=== PATIENT | male | born 1965 | race African-American/Black ===

== ENCOUNTER 2025-05-23 06:18 | Inpatient (IN) | payer MEDICAID ==
[~2025-05-23] VITALS: Ht 170.2 cm; Wt 77.1 kg
[2025-05-23 06:21] VITALS: O2SAT 98
[2025-05-23 07:12] LABS: HEMATOCRIT. 37.9 % (42.0-52.0); HEMOGLOBIN. 12.7 g/dL (14.0-18.0); MEAN PLATELET VOLUME 7.7 fl (7.4-10.4); PLATELET 223 x1000/uL (130-400); RED BLOOD CELL COUNT 3.82 mill/uL (4.7-6.1); RED CELL DISTRIBUTION WIDTH 14.4 % (11.6-14.6)
[2025-05-23 07:24] LABS: CREATININE 1.7 mg/dL (0.6-1.3); UREA NITROGEN BLOOD 20.0 mg/dL (9-23)
[2025-05-23] MEDS: MORPHINE SULFATE 4 MG/ML INJ (FOR IV/IM USE) IV ONE (08:22)
[2025-05-23] MEDS: SODIUM CHLORIDE 0.9% (SEPSIS BOLUS) IV ONE (08:31)
[2025-05-23] MEDS: PIPERACILLIN/TAZO 3.375G/50ML 50 ML IV ONE (08:40)
[2025-05-23 08:59] LABS: ASPARTATE AMINOTRANSFERASE 12 IU/L (<34); BILIRUBIN DIRECT 0.3 mg/dL (<=3.0); BILIRUBIN TOTAL 0.8 mg/dL (0.1-1.0); PROTEIN TOTAL 5.9 g/dL (6.0-8.3)
[2025-05-23 09:39] LABS: BAND% 21.0 % (1.0-6.0); LYMPHOCYTES % MANUAL 2.0 % (20.0-50.0); MONOCYTES % MANUAL 1.0 % (2.0-8.0); NEUTROPHILS % MANUAL 76.0 % (45.0-75.0); PLATELET ESTIMATE NORMAL
[2025-05-23 11:00] VITALS: BP 150/73; PULSE 102; RESP 19; TEMP 36.4736
[2025-05-23] MEDS ORDERED: ONDANSETRON HCL 4MG/2ML INJ IV PRN (11:30)
[2025-05-23] MEDS ORDERED: MAGNESIUM/ALUMINUM HYDROXIDE/SIMETHICONE 30ML UDC PO PRN (11:30)
[2025-05-23] MEDS ORDERED: ACETAMINOPHEN 325MG TABLET PO PRN (11:30)
[2025-05-23] MEDS ORDERED: NALOXONE HCL 0.4MG/ML VIAL IV PRN (11:45)
[2025-05-23 12:00] VITALS: BP 151/74; PULSE 102; RESP 19; TEMP 36.4; O2SAT 98
[2025-05-23] MEDS: ENOXAPARIN 40MG/0.4ML SYR SUBCUT SCH (12:49)
[2025-05-23] MEDS: SODIUM CHLORIDE 0.9% 1,000 ML IV SCH (12:50)
[2025-05-23] MEDS: HYDROCODONE/ACETAMINOPHEN 10/325MG TABLET PO PRN (14:48)
[2025-05-23] MEDS: PIPERACILLIN/TAZO 3.375G/50ML 50 ML IV SCH (15:22)
[2025-05-23 16:00] VITALS: BP 114/68; PULSE 109; RESP 19; TEMP 36.6; O2SAT 96
[2025-05-23 17:29] LABS: HEPATITIS C AB NON REACTIVE (Neg) (Negative)
[2025-05-23 19:57] LABS: CLARITY URINE CLEAR (CLEAR); COLOR URINE DARK YELLOW (YELLOW); GLUCOSE URINE NEGATIVE (NEGATIVE); KETONES URINE NEGATIVE (NEGATIVE); LEUKOCYTE ESTERASE URINE TRACE (NEGATIVE); NITRITE URINE NEGATIVE (NEGATIVE); OCCULT BLOOD URINE NEGATIVE (NEGATIVE); PH URINE 7.0 (4.5-8.0); PROTEIN URINE 2+ (NEGATIVE); SPECIFIC GRAVITY URINE 1.018 (1.005-1.030); UROBILINOGEN URINE >8.0 E.U./dL (0.2-1.0)
[2025-05-23 20:00] VITALS: BP 139/79; PULSE 106; RESP 20; TEMP 36.5; O2SAT 97
[2025-05-23 20:01] LABS: BACTERIA URINE RARE; RBC URINE NONE SEEN /hpf (0-2); SQUAMOUS EPITHELIAL CELL URINE NONE SEEN /lpf (RARE/1+)
[2025-05-23] MEDS: DOXYCYCLINE HYCLATE 100MG CAPSULE PO SCH (20:44)
[2025-05-23] MEDS: FAMOTIDINE 20MG TABLET PO SCH (20:44)
[2025-05-23] MEDS: ZOLPIDEM TARTRATE 5MG TABLET PO PRN (20:50)
[2025-05-24] VITALS: BP 113/92; PULSE 68; RESP 20; TEMP 36.4; O2SAT 96
[2025-05-24 04:00] VITALS: BP 113/74; PULSE 74; RESP 19; TEMP 36.6; O2SAT 96
[2025-05-24 06:28] LABS: HEMATOCRIT. 38.0 % (42.0-52.0); HEMOGLOBIN. 12.9 g/dL (14.0-18.0); MEAN PLATELET VOLUME 8.3 fl (7.4-10.4); PLATELET 204 x1000/uL (130-400); RED BLOOD CELL COUNT 3.83 mill/uL (4.7-6.1); RED CELL DISTRIBUTION WIDTH 14.0 % (11.6-14.6)
[2025-05-24 06:39] LABS: CREATININE 1.5 mg/dL (0.6-1.3); UREA NITROGEN BLOOD 15.0 mg/dL (9-23)
[2025-05-24 08:00] VITALS: BP 110/60; PULSE 92; RESP 18; TEMP 36.4; O2SAT 98
[2025-05-24 12:00] VITALS: BP 112/62; PULSE 90; RESP 18; TEMP 36.4; O2SAT 97
[2025-05-24 13:26] LABS: BAND% 14.0 % (1.0-6.0); LYMPHOCYTES % MANUAL 2.0 % (20.0-50.0); MONOCYTES % MANUAL 7.0 % (2.0-8.0); NEUTROPHILS % MANUAL 77.0 % (45.0-75.0); PLATELET ESTIMATE NORMAL
[2025-05-24 16:00] VITALS: BP 116/68; PULSE 93; RESP 18; TEMP 36.6; O2SAT 98
[2025-05-24 20:00] VITALS: BP 128/69; PULSE 93; RESP 18; TEMP 36.1; O2SAT 100
[2025-05-25] VITALS: BP 127/82; PULSE 87; RESP 18; TEMP 36.6; O2SAT 98
[2025-05-25 04:00] VITALS: BP 132/82; PULSE 80; RESP 18; TEMP 36.4; O2SAT 96
[2025-05-25 08:00] VITALS: BP 142/84; PULSE 91; RESP 17; TEMP 36.3; O2SAT 96
[2025-05-25 12:00] VITALS: BP 136/76; PULSE 84; RESP 17; TEMP 36.4; O2SAT 97
[2025-05-25 16:00] VITALS: BP 140/77; PULSE 82; RESP 16; TEMP 36.2; O2SAT 96
[2025-05-25] MEDS: ACETAMINOPHEN 325MG TABLET PO PRN (18:01)
[2025-05-25 20:00] VITALS: BP 115/64; PULSE 85; RESP 19; TEMP 36.2; O2SAT 97
[2025-05-26] VITALS: BP 132/83; PULSE 89; RESP 18; TEMP 36.1; O2SAT 97
[2025-05-26] MEDS: VANCOMYCIN 1.5GM PMX (XELLIA) 300 ML IV NR (01:37)
[2025-05-26 04:00] VITALS: BP 136/75; PULSE 83; RESP 18; TEMP 36.1; O2SAT 97
[2025-05-26 06:08] LABS: CREATININE 1.5 mg/dL (0.6-1.3); UREA NITROGEN BLOOD 13.0 mg/dL (9-23)
[2025-05-26 06:19] LABS: PLATELET 259 x1000/uL (130-400); RED BLOOD CELL COUNT 3.85 mill/uL (4.7-6.1); RED CELL DISTRIBUTION WIDTH 14.0 % (11.6-14.6)
[2025-05-26] MEDS ORDERED: EPHEDRINE SULFATE 50MG/ML VIAL ONE (07:43)
[2025-05-26] MEDS ORDERED: PHENYLEPHRINE HCL 10MG/ML 1ML IV ONE (07:43)
[2025-05-26] MEDS ORDERED: FENTANYL CITRATE/PF 50MCG/ML 5ML VIAL ONE (07:43)
[2025-05-26] MEDS ORDERED: PROPOFOL 200MG/20ML VIAL IV ONE (07:43)
[2025-05-26] MEDS ORDERED: HYDROMORPHONE HCL/PF 1MG/ML INJ IV PRN (07:45)
[2025-05-26] MEDS: FAMOTIDINE 20MG/2ML INJ IV SCH (07:45)
[2025-05-26] MEDS ORDERED: ONDANSETRON HCL 4MG/2ML INJ IV PRN (07:45)
[2025-05-26] MEDS ORDERED: POLYMYXIN B SULFATE 500000 UNITS/VIAL ONE (07:54)
[2025-05-26] MEDS ORDERED: HYDROMORPHONE HCL/PF 1MG/ML INJ ONE ×3 (08:12→08:19)
[2025-05-26] MEDS ORDERED: HYDROMORPHONE HCL/PF 2MG/ML INJ ONE ×2 (08:43→08:58)
[2025-05-26 09:07] LABS: ABSOLUTE BASOPHILS 0.2 x10E3/uL (0.0-0.2); ABSOLUTE EOSINOPHILS 0.3 x10E3/uL (0.0-0.4); ABSOLUTE LYMPHOCYTES 1.2 x10E3/uL (0.7-3.1); ABSOLUTE MONOCYTES 1.2 x10E3/uL (0.1-0.9); ABSOLUTE NEUTROPHILS 17.1 x10E3/uL (1.4-7.0); BASOPHILS 1 % (Not Estab.); EOSINOPHILS 1 % (Not Estab.); IMMATURE GRANULOCYTES 1 % (Not Estab.); IMMATURE GRANULOCYTES ABSOLUTE 0.2 x10E3/uL (0.0-0.1); LYMPHOCYTES 6 % (Not Estab.); MEAN CORPUSCULAR HGB CONC. 33.2 g/dL (31.5-35.7); MONOCYTES 6 % (Not Estab.); NEUTROPHILS 85 % (Not Estab.); PLATELETS 253 x10E3/uL (150-450); RBC 4.03 x10E6/uL (4.14-5.80); RED CELL DISTRIBUTION WIDTH 12.8 % (11.6-15.4); WBC 20.1 x10E3/uL (3.4-10.8)
[2025-05-26 12:00] VITALS: BP 117/94; PULSE 73; RESP 17; TEMP 36.2; O2SAT 98
[2025-05-26 13:10] LABS: % CD 3 POS. LYMPHOCYTES 72.0 % (57.5-86.2); % CD 4 POS. LYMPHOCYTES 41.2 % (30.8-58.5); % CD 8 POS. LYMPH 29.8 % (12.0-35.5); ABSOLUTE CD 3 864 /uL (622-2402); ABSOLUTE CD 4 HELPER 494 /uL (359-1519); ABSOLUTE CD 8 SUPPRESSOR 358 /uL (109-897)
[2025-05-26] MEDS ORDERED: VANCOMYCIN 500 MG in DEXT 5% WATER 100 ML IV SCH (15:00)
[2025-05-26 16:00] VITALS: BP 148/78; PULSE 85; RESP 17; TEMP 36.3; O2SAT 96
[2025-05-26 20:00] VITALS: BP 157/88; PULSE 87; RESP 20; TEMP 36.4; O2SAT 98
[2025-05-26] MEDS: VANCOMYCIN 1.25GM/250ML 250 ML IV SCH (21:20)
[2025-05-27] VITALS: BP 134/83; PULSE 81; RESP 18; TEMP 36.2; O2SAT 94
[2025-05-27 04:00] VITALS: BP 155/73; PULSE 80; RESP 20; TEMP 36.2; O2SAT 100
[2025-05-27 04:09] LABS: CHLAMYDIA TRACHOMATIS NAA Negative (Negative); NEISSERIA GONORRHOEAE NAA Negative (Negative)
[2025-05-27 08:00] VITALS: BP 135/68; PULSE 80; RESP 17; TEMP 36.4; O2SAT 98
[2025-05-27 12:00] VITALS: BP 136/72; PULSE 84; RESP 18; TEMP 36.6; O2SAT 97
[2025-05-27 16:00] VITALS: BP 149/68; PULSE 74; RESP 18; TEMP 36.6; O2SAT 97
[2025-05-27 20:00] VITALS: BP 128/69; PULSE 77; RESP 18; TEMP 36.7; O2SAT 98
[2025-05-28] VITALS: BP 148/71; PULSE 78; RESP 18; TEMP 36.7; O2SAT 98
[2025-05-28 04:00] VITALS: BP 150/85; PULSE 78; RESP 18; TEMP 36.6; O2SAT 98
[2025-05-28 08:00] VITALS: BP 122/70; PULSE 53; RESP 18; TEMP 36.1; O2SAT 98
[2025-05-28 12:00] VITALS: BP 152/91; PULSE 78; RESP 17; TEMP 36.3; O2SAT 97
[2025-05-28] MEDS ORDERED: IBUPROFEN 600MG TABLET PO PRN (12:00)
[2025-05-28 12:11] LABS: CREATININE 1.5 mg/dL (0.6-1.3)
[2025-05-28 12:12] LABS: UREA NITROGEN BLOOD 8.0 mg/dL (9-23)
[2025-05-28 16:00] VITALS: BP 138/66; PULSE 75; RESP 16; TEMP 36.2; O2SAT 96
[2025-05-28 20:00] VITALS: BP 149/68; PULSE 78; RESP 20; TEMP 36.5; O2SAT 100
[2025-05-28] MEDS: NAPROXEN 375MG TABLET PO PRN (21:27)
[2025-05-28] MEDS: POTASSIUM CHLORIDE 20MEQ TABLET SR PO NR (21:27)
[2025-05-29 01:11] VITALS: BP 143/79; PULSE 71; RESP 18; TEMP 36.3; O2SAT 98
[2025-05-29 04:00] VITALS: BP 147/76; PULSE 62; RESP 16; TEMP 36.7; O2SAT 96
[2025-05-29 07:20] LABS: PLATELET 419 x1000/uL (130-400); RED BLOOD CELL COUNT 3.96 mill/uL (4.7-6.1); RED CELL DISTRIBUTION WIDTH 14.0 % (11.6-14.6)
[2025-05-29 07:39] LABS: CREATININE 1.5 mg/dL (0.6-1.3); UREA NITROGEN BLOOD 11.0 mg/dL (9-23)
[2025-05-29 08:00] VITALS: BP 155/77; PULSE 67; RESP 17; TEMP 36.9; O2SAT 98
[2025-05-29] MEDS: CLONIDINE 0.1MG TABLET PO PRN (11:32)
[2025-05-29 12:00] VITALS: BP 156/93; PULSE 69; RESP 20; TEMP 36.5; O2SAT 100
[2025-05-29 16:00] VITALS: BP 134/79; PULSE 70; RESP 16; TEMP 36.9; O2SAT 98
[2025-05-29 20:00] VITALS: BP 153/75; PULSE 71; RESP 16; TEMP 36.4; O2SAT 97
[2025-05-30] VITALS: BP 149/80; PULSE 72; RESP 18; TEMP 37.1; O2SAT 97
[2025-05-30 04:00] VITALS: BP 157/77; PULSE 64; RESP 18; TEMP 37.5; O2SAT 98
[2025-05-30 08:00] VITALS: BP 160/80; PULSE 68; RESP 18; TEMP 36.7; O2SAT 98
[2025-05-30 12:00] VITALS: BP 142/74; PULSE 67; RESP 18; TEMP 36.6; O2SAT 98
[2025-05-30 16:00] VITALS: BP 151/78; PULSE 64; RESP 18; TEMP 36.7; O2SAT 98
[2025-05-30 20:00] VITALS: BP 157/87; PULSE 70; RESP 16; TEMP 37.1; O2SAT 98
[2025-05-30 23:36] LABS: CLARITY URINE CLEAR (CLEAR); COLOR URINE YELLOW (YELLOW); GLUCOSE URINE NEGATIVE (NEGATIVE); KETONES URINE NEGATIVE (NEGATIVE); LEUKOCYTE ESTERASE URINE NEGATIVE (NEGATIVE); NITRITE URINE NEGATIVE (NEGATIVE); OCCULT BLOOD URINE 2+ (NEGATIVE); PH URINE 6.0 (4.5-8.0); PROTEIN URINE TRACE (NEGATIVE); SPECIFIC GRAVITY URINE 1.017 (1.005-1.030); UROBILINOGEN URINE 0.2 E.U./dL (0.2-1.0)
[2025-05-31] VITALS: BP 143/74; PULSE 60; RESP 20; TEMP 36.4; O2SAT 99
[2025-05-31 03:12] LABS: WBC URINE 0-2 /hpf (0-2)
[2025-05-31 03:13] LABS: BACTERIA URINE NONE SEEN; SQUAMOUS EPITHELIAL CELL URINE FEW /lpf (RARE/1+)
[2025-05-31 04:00] VITALS: BP 138/93; PULSE 66; RESP 19; TEMP 36.4; O2SAT 99
[2025-05-31 08:00] VITALS: BP 143/70; PULSE 75; RESP 18; TEMP 36.9; O2SAT 99
[2025-05-31 12:00] VITALS: BP 138/78; PULSE 80; RESP 18; TEMP 36.7; O2SAT 99
[2025-05-31] MEDS: DIPHENHYDRAMINE 50MG/ML VIAL IV PRN (15:02)
[2025-05-31 16:00] VITALS: BP 158/83; PULSE 69; RESP 18; TEMP 36.7; O2SAT 99
[2025-05-31 20:00] VITALS: BP 146/84; PULSE 71; RESP 18; TEMP 36.6; O2SAT 95
[2025-06-01] VITALS: BP 157/84; PULSE 67; RESP 19; TEMP 36.3; O2SAT 95
[2025-06-01 04:00] VITALS: BP 153/93; PULSE 81; RESP 19; TEMP 36.9; O2SAT 97
[2025-06-01 08:00] VITALS: BP 152/88; PULSE 71; RESP 17; TEMP 36.3; O2SAT 100
[2025-06-01 12:00] VITALS: BP 142/78; PULSE 70; RESP 16; TEMP 36.6; O2SAT 100
[2025-06-01 16:00] VITALS: BP 137/79; PULSE 69; RESP 17; TEMP 36.1; O2SAT 100
[2025-06-01 20:00] VITALS: BP 127/88; PULSE 67; RESP 18; TEMP 36.9; O2SAT 100
[2025-06-02] VITALS: BP 157/82; PULSE 66; RESP 20; TEMP 36.4; O2SAT 98
[2025-06-02 04:00] VITALS: BP 161/80; PULSE 87; RESP 18; TEMP 36.6; O2SAT 100
[2025-06-02 08:00] VITALS: BP 138/79; PULSE 78; RESP 19; TEMP 36.8; O2SAT 97
[2025-06-02 12:00] VITALS: BP 136/67; PULSE 76; RESP 18; TEMP 36.4; O2SAT 100
[2025-06-02] MEDS ORDERED: SULF-13 PO (15:22)
[2025-06-02 16:00] VITALS: BP 150/76; PULSE 67; RESP 18; TEMP 36.7; O2SAT 98
[2025-06-02 20:00] VITALS: BP 128/66; PULSE 65; RESP 18; TEMP 36.3; O2SAT 96
[2025-06-03] VITALS: BP 164/83; PULSE 65; RESP 19; TEMP 36.3; O2SAT 96
[2025-06-03 04:00] VITALS: BP 142/86; PULSE 63; RESP 18; TEMP 36.9; O2SAT 98
[2025-06-03] MEDS: VANCOMYCIN 1G PREMIX 200 ML IV ONE (08:30)
[2025-06-03 13:52] LABS: CREATININE 1.5 mg/dL (0.6-1.3)
[2025-06-03 13:53] LABS: UREA NITROGEN BLOOD 16.0 mg/dL (9-23)
[2025-06-03 20:00] VITALS: BP 157/82; PULSE 61; RESP 19; TEMP 36.4; O2SAT 99
[2025-06-04 00:32] VITALS: BP 132/67; PULSE 62; RESP 18; TEMP 36.3; O2SAT 93
[2025-06-04 04:00] VITALS: BP 129/70; PULSE 61; RESP 18; TEMP 36.4; O2SAT 97
[2025-06-04 08:00] VITALS: BP 115/70; PULSE 71; RESP 20; TEMP 36.4; O2SAT 95
[2025-06-04 10:33] VITALS: BP 115/70; PULSE 71; RESP 20; TEMP 97.7
[2025-06-04 12:00] VITALS: BP 147/76; PULSE 20; RESP 20; TEMP 36.8; O2SAT 97
== END 2025-06-04 14:47 | disposition home health service (06) | DRG 975 ==
LOC: ER 06:18 → EDBEDREQSVC 09:43 → ENRESERV 10:12 → 6WST 11:15 → 8EST 05-29 00:52
PROVIDERS: ADMIT Internal Medicine; ATTEND Internal Medicine
PROC: 0W9M0ZZ Drainage of Male Perineum, Open Approach (ICD-10-PCS; principal; 2025-05-26)
DX: A41.9 Sepsis, unspecified organism (principal); L02.215 Cutaneous abscess of perineum; B20 Human immunodeficiency virus [HIV] disease; N17.9 Acute kidney failure, unspecified; Z59.01 Sheltered homelessness; J18.9 Pneumonia, unspecified organism; Q63.1 Lobulated, fused and horseshoe kidney; I11.9 Hypertensive heart disease without heart failure; K62.89 Other specified diseases of anus and rectum; Z86.73 Personal history of transient ischemic attack (TIA), and cerebral infarction without residual deficits
CPT/HCPCS: 36415; 71045; 74176; 76870; 80048; 80076; 80202; 81003; 83605; 84145; 85025; 85027; 86359; 86360; 86592; 86705; 87070; 87077; 87186; 87340; 87491; 87591; 93005; 93976; 96365; 96375; 97161; 99285; G0378; J1171; J1200; J1308; J1650; J2270; J2371; J2405; J2543; J2704; J3010; J3373; J3490; J7030; J7060